=== PATIENT | female | born 1975 | race Asian ===

== ENCOUNTER 2018-07-06 04:36 | Inpatient (IN) | payer MEDICARE, OTHER, MEDICAID ==
[~2018-07-06] VITALS: Ht 149.9 cm; Wt 68.9 kg
[2018-07-06] MEDS ORDERED: ONDANSETRON ODT 4 MG ONE (05:26)
[2018-07-06] MEDS ORDERED: ONDANSETRON ODT 4 MG PO ONE (05:30)
[2018-07-06] MEDS ORDERED: LORazepam 2 MG/ML, 1ML ONE (06:19)
[2018-07-06] MEDS ORDERED: PROMETHAZINE 25 MG/ML, 1ML ONE (06:19)
[2018-07-06] MEDS ORDERED: PROMETHAZINE 25 MG/ML, 1ML IM ONE (06:30)
[2018-07-06] MEDS ORDERED: SODIUM CHLORIDE 0.9% 1,000ML IVBOLUS ONE (06:30)
[2018-07-06] MEDS ORDERED: SODIUM CHLORIDE FLUSH 10ML SYR IVF ONE (06:30)
[2018-07-06] MEDS ORDERED: LORazepam 2 MG/ML, 1ML IM ONE (07:30)
[2018-07-06 07:34] LABS: BASOPHILS # (AUTO) 0.04 x10^3/uL (0-0.1); BASOPHILS % (AUTO) 0 % (0-1); EOSINOPHILS # (AUTO) 0.02 x10^3/uL (0-0.4); EOSINOPHILS % (AUTO) 0 % (1-7); LYMPHOCYTES # (AUTO) 1.88 x10^3/uL (1-3.4); LYMPHOCYTES % (AUTO) 18 % (22-44); MD NO; MEAN CORPUSCULAR HEMOGLOBIN 29.4 pg (27.0-34.8); MEAN CORPUSCULAR HGB CONC 33.5 g/dL (32.4-35.8); MEAN CORPUSCULAR VOLUME 87.6 fL (80-100); MEAN PLATELET VOLUME 8.1 fL (7.4-10.4); MONOCYTES # (AUTO) 0.59 x10^3/uL (0.2-0.8); MONOCYTES % (AUTO) 6 % (2-9); NEUTROPHILS # (AUTO) 8.05 x10^3/uL (1.8-6.8); NEUTROPHILS % (AUTO) 76 % (42-75); PLATELET COUNT 371 x10^3/uL (130-400); RED CELL DISTRIBUTION WIDTH 14.1 % (9.6-15.2)
[2018-07-06 07:39] LABS: INTERNATIONAL NORMALIZED RATIO 0.96 (0.93-1.1)
[2018-07-06 07:44] LABS: ALANINE AMINOTRANSFERASE 22 U/L (12-78); ALBUMIN 3.9 g/dL (3.4-5.0); ANION GAP 10 mmol/L (5-15); CALCIUM 8.9 mg/dL (8.5-10.1); CHLORIDE 109 mmol/L (98-107); CREATININE 0.68 mg/dL (0.55-1.02)
[2018-07-06 07:46] LABS: ALKALINE PHOSPHATASE 69 U/L (45-117); BILIRUBIN,TOTAL 0.7 mg/dL (0.2-1.0); TOTAL PROTEIN 8.4 g/dL (6.4-8.2)
[2018-07-06] MEDS ORDERED: PANTOPRAZOLE 80 MG in SODIUM CHLORIDE 0.9% 100 ML IV SCH (09:30)
[2018-07-06] MEDS ORDERED: PANTOPRAZOLE 80 MG in SODIUM CHLORIDE 0.9% 50 ML IV ONE (09:30)
[2018-07-06 10:57] VITALS: BP 113/82
[2018-07-06] MEDS: PANTOPRAZOLE 80 MG in SODIUM CHLORIDE 0.9% 100 ML IV SCH ×2 (11:02→22:30)
[2018-07-06] MEDS ORDERED: ONDANSETRON 2MG/ML, 2ML IV PRN (11:30)
[2018-07-06] MEDS ORDERED: ACETAMINOPHEN 325 MG TABLET PO PRN (11:30)
[2018-07-06] MEDS: SODIUM CHLORIDE 0.9% 1,000 ML IV SCH (11:36)
[2018-07-06] MEDS: LORazepam 2 MG/ML, 1ML IVPush PRN ×2 (11:36→22:59)
[2018-07-06] MEDS: ONDANSETRON ODT 4 MG PO SCH ×3 (12:07→22:29)
[2018-07-06 12:30] VITALS: BP 102/66
[2018-07-06 18:50] VITALS: BP 119/65
[2018-07-07 03:35] VITALS: BP 113/77
[2018-07-07] MEDS: PANTOPRAZOLE 80 MG in SODIUM CHLORIDE 0.9% 100 ML IV SCH (07:02)
[2018-07-07 07:09] VITALS: BP 116/64
[2018-07-07] MEDS: SODIUM CHLORIDE 0.9% 1,000 ML IV SCH (08:29)
[2018-07-07] MEDS: ONDANSETRON ODT 4 MG PO SCH (09:00)
[2018-07-07] MEDS ORDERED: PROPOFOL 10 MG/ML, 50ML ONE (10:44)
[2018-07-07] MEDS ORDERED: PROPOFOL 10 MG/ML, 20ML ONE (10:44)
[2018-07-07 12:06] VITALS: BP 99/48
[2018-07-07] MEDS ORDERED: FENTANYL PF 100 MCG/2ML IV PRN (12:30)
[2018-07-07] MEDS ORDERED: ONDA4TAB10 PO (14:58)
== END 2018-07-07 16:29 | disposition home or self-care (01) | DRG 917 ==
LOC: ED 07:50 → EDIP 09:08 → 3NW 10:05
PROVIDERS: ADMIT Hospitalist; ATTEND Hospitalist
PROC: 0DJ08ZZ Inspection of Upper Intestinal Tract, Via Natural or Artificial Opening Endoscopic (ICD-10-PCS; principal; 2018-07-07 15:30)
DX: T62.91XA Toxic effect of unspecified noxious substance eaten as food, accidental (unintentional), initial encounter (principal); K22.6 Gastro-esophageal laceration-hemorrhage syndrome; Q93.51 Angelman syndrome; E86.0 Dehydration; K59.09 Other constipation; K29.70 Gastritis, unspecified, without bleeding; Z79.1 Long term (current) use of non-steroidal anti-inflammatories (NSAID); Z82.49 Family history of ischemic heart disease and other diseases of the circulatory system; Z83.3 Family history of diabetes mellitus; Y92.89 Other specified places as the place of occurrence of the external cause; Z81.8 Family history of other mental and behavioral disorders
CPT/HCPCS: 36415; 36430; 74021; 80053; 83605; 83690; 85014; 85018; 85025; 85610; 86677; 86850; 86900; 86923; 96372; 96374; 99285; G0378; J2550; J2704; Q0162; C9113; J2060; J7030